=== PATIENT | female | born 1950 | race Caucasian/White ===

== ENCOUNTER 2019-09-05 06:10 | Day surgery (SDC) | payer BC ==
[2019-09-05] MEDS ORDERED: LIDOCAINE 2% MDV (20MG/ML) 20ML VIAL IV ONE (06:11)
[2019-09-05] MEDS ORDERED: PROPOFOL 10 MG/ML VIAL IV ONE (06:11)
--- NOTE | 2019-09-08 08:20 | Operative Note ---
SURGEON: Camille Cuellar MD OPERATION: COLONOSCOPY. INDICATIONS: This is a 69-year-old female with history of colon polyps who presented for surveillance colonoscopy. POSTOPERATIVE DIAGNOSES: 1. A 5 mm sessile polyp in the sigmoid colon that was removed by cold snare. 2. A 5 mm sessile polyp in the rectum that was removed by cold snare. ANESTHESIA: Sedation is per Anesthesia. Pulse oximetry was monitored throughout the procedure to maintain O2 saturation of 90% or greater. Supplemental oxygen was administered via nasal cannula. Cardiac and vital signs were monitored throughout the duration of the procedure, and they were stable. The procedure of colonoscopy and risks and alternatives of the procedure, including the risk of bleeding and perforation, among others, were explained to the patient who voiced understanding and agreed to have the procedure done. Physical examination was performed, and the patient was found stable for sedation. PROCEDURE: The patient was placed in the left lateral position. Sedation was initiated. A digital rectal exam was performed and showed some mild external hemorrhoids with no palpable rectal masses. An Olympus PCF-180AL colonoscope was then inserted into the rectum under direct visualization. It was advanced to the cecum without difficulty. The ileocecal valve and appendiceal orifice were identified and photographed. The colonic mucosa was carefully examined upon introduction of the colonoscope. There were no gross lesions noted. The bowel preparation was good. The colonoscope was then withdrawn while carefully examining the colonic mucosal surfaces. The cecum, ascending colon, transverse colon, and descending colon mucosa appeared normal. In the sigmoid colon was a 5 mm sessile polyp that was noted and was removed by cold snare. The colonoscope was then withdrawn into the rectum and another 5 mm sessile polyp was noted and was removed by cold snare. On retroflexion, grade 1 internal hemorrhoids were noted. The colonoscope was then withdrawn and the procedure was terminated. The patient tolerated the procedure well without any immediate complications. The patient remained with stable vital signs and was transferred to the recovery room. RECOMMENDATIONS: 1. The patient should be on a high-fiber diet. 2. The patient is to have a repeat colonoscopy for surveillance in 3 or 5 years depending on the histology of the polyps. Thank you for allowing me to participate in the care of your patient. NASREEN
== END 2019-09-05 07:58 | disposition home or self-care (01) ==
LOC: HOP 06:10
PROVIDERS: ATTEND Internal Medicine Gastroenterology
DX: Z12.11 Encounter for screening for malignant neoplasm of colon (principal); Z86.010 Personal history of colon polyps; D12.8 Benign neoplasm of rectum; D12.5 Benign neoplasm of sigmoid colon; J44.9 Chronic obstructive pulmonary disease, unspecified; I10 Essential (primary) hypertension; E78.00 Pure hypercholesterolemia, unspecified